=== PATIENT | male | born 1965 | race Caucasian/White ===

== ENCOUNTER 2016-09-20 07:17 | Emergency (ER) | payer BC, OTHER ==
[~2016-09-20] VITALS: Ht 182.9 cm; Wt 134.1 kg
[2016-09-20] MEDS ORDERED: KETOROLAC 15 MG INJ IV STA (07:20)
[2016-09-20] MEDS ORDERED: ONDANSETRON 4 MG INJ IV STA (07:20)
[2016-09-20] MEDS ORDERED: SOD CHLORIDE 0.9% 1,000 ML IV STA (07:20)
[2016-09-20] MEDS ORDERED: FAMOTIDINE 20 MG INJ IV STA (07:20)
[2016-09-20 07:21] VITALS: Ht 182.9 cm; Wt 134.1 kg
[2016-09-20] MEDS ORDERED: RABE20TA5 PO (08:00)
[2016-09-20] MEDS ORDERED: ATEN100T PO (08:00)
[2016-09-20] MEDS ORDERED: FOLI-49 PO (08:01)
[2016-09-20 08:15] LABS: BASOPHIL # 0.1 10^3/ul (0.0-0.1); BASOPHILS % 1.5 % (0.0-2.0); EOSINOPHILS # 0.1 10^3/ul (0.0-0.5); HEMATOCRIT 46.2 % (42.0-52.0); HEMOGLOBIN 15.5 g/dl (14.0-18.0); LYMPHOCYTES # 1.1 10^3/ul (0.8-2.9); LYMPHOCYTES % 19.1 % (15.0-51.0); MEAN CORPUSCULAR HEMOGLOBIN 31.1 pg (29.0-33.0); MEAN CORPUSCULAR HGB CONC 33.6 g/dl (32.0-37.0); MEAN CORPUSCULAR VOLUME 92.8 fl (82.0-101.0); MEAN PLATELET VOLUME 9.4 fl (7.4-10.4); MONOCYTE # 0.5 10^3/ul (0.3-0.9); MONOCYTES % 9.4 % (0.0-11.0); NEUTROPHIL # 3.9 10^3/ul (1.6-7.5); PLATELET COUNT 113 10^3/UL (140-440); RED BLOOD COUNT 4.98 10^6/ul (4.70-6.10); RED CELL DISTRIBUTION WIDTH 16.8 % (11.5-14.5); UNCORRECTED WBC 5.7 10^3/ul (4.8-10.8); WHITE BLOOD COUNT 5.7 10^3/ul (4.8-10.8)
[2016-09-20 08:33] LABS: CONDITION 1; LH ANALYZER COMMENTS 1
[2016-09-20 08:34] LABS: ALBUMIN 3.7 g/dl (3.3-4.9)
[2016-09-20 08:35] LABS: POTASSIUM 4.1 mmol/L (3.5-5.1)
[2016-09-20 08:37] LABS: ALBUMIN/GLOBULIN RATIO 0.88; BILIRUBIN,INDIRECT 0.3 mg/dl (0-1.1); BILIRUBIN,TOTAL 0.3 mg/dl (0.2-1.3); CREATININE 0.6 mg/dl (0.61-1.24); TOTAL PROTEIN 7.9 g/dl (6.1-8.1)
[2016-09-20 08:38] LABS: CALCIUM 9.1 mg/dl (8.4-10.2)
--- NOTE | 2016-09-20 08:53 | RADRPT ---
PROCEDURE: US Abdomen. CLINICAL INDICATION: abdominal pain TECHNIQUE: Multiple real-time images were acquired of the patient's right upper quadrant abdomen a nd retroperitoneum utilizing a high resolution transducer. COMPARISON: None FINDINGS: Limited study due to patient body habitus. The liver demonstrates increased echogenicity. The liver is enlarged in size and no focal solid les ions are seen. The liver measures 19.5 cm in length. The portal vein is patent with normal direction of flow. No intrahepatic biliary dilatation is seen. There is a moderate amount of sludge within the gallbladder. There is no pericholecystic fluid . T here is mild gallbladder wall thickening, measuring 4 mm. The common bile duct measures 6 mm in maxi mal dimension. The pancreas is not seen due to overlying bowel gas. No free fluid is identified. The right kidney is normal in size, and demonstrate normal echogenicity and cortical thickness. The right kidney measures 12.2 cm in long dimension. There is no evidence of hydronephrosis. There are no kidney stones. RPTAT: AA IMPRESSION: Mild hepatomegaly with fatty infiltration. Moderate amount of sludge within the gallbladder. Mildly thickened gallbladder wall measuring 4 mm. .Wilver Weiss MD, Date Time Electronically viewed and signed by .Wilver Weiss MD, on 09/20/2016 08:53 .S/
--- NOTE | 2016-09-20 09:49 | ERD ---
ER Documentation Chief Complaint Date/Time DATE: 09/20/16 TIME: 09:47 Chief Complaint BROUGHT IN VIA EMS DUE TO ABDOMINAL PAIN FROM WORK HPI This is a 51-year-old male who presents to the emergency room for evaluation of abdominal pain. The patient states that his abdominal pain for 1 days duration , states is an achy pain. He localizes to the midportion of his abdomen it does state that he drank 612 ounce beers last night. The patient states that he came to the ER today for evaluation. No diarrhea associated with this and one episode of vomiting. ROS All systems reviewed and are negative except as per history of present illness. Medications Home Meds Reported Medications Folic Acid* (Folic Acid*) 1 Mg Tablet, 1 MG PO DAILY, TAB 09/20/16 Rabeprazole Sodium* (Aciphex*) 20 Mg Tablet.dr, 20 MG PO DAILY, #30 TAB 09/20/16 Atenolol* (Atenolol*) 100 Mg Tablet, 100 MG PO DAILY, #30 TAB 09/20/16 Allergies Allergies: Coded Allergies: No Known Allergy (Unverified , 09/20/16) PMhx/Soc Medical and Surgical Hx: Unable to obtain Hx Alcohol Use: Yes Hx Substance Use: No Hx Tobacco Use: No Smoking Status: Never smoker Physical Exam Vitals Vital Signs Date Time Temp Pulse Resp B/P Pulse Ox O2 Delivery O2 Flow Rate FiO2 09/20/16 07:56 82 18 135/74 98 Room Air 09/20/16 07:21 97.8 74 18 144/111 100 Physical Exam INITIAL VITAL SIGNS: Reviewed by me GENERAL: The patient is well developed and appropriate for usual state of health in no apparent distress HEENT: Pupils equal, round, and reactive to light. EOMI. There is no scleral icterus. NECK: C-spine is soft and supple, there is no meningismus. There is no cervical lymphadenopathy. LUNGS: Clear to auscultation bilaterally. There are no rales, wheezes or rhonchi. HEART: Regular rate and rhythm, no murmurs, clicks, rubs or gallops. ABDOMEN: Epigastric tenderness to palpation, positive Viveros sign there are bowel sounds in all four quadrants. EXTREMITIES: There is no peripheral cyanosis or edema. No focal swelling or erythema. NEUROLOGICAL: The patient moves all four extremities with 5/5 strength. Cranial nerves II - XII are intact. Normal gait. Alert and oriented SKIN: There is no apparent rash or petechiae. HEME/LYMPHATIC: There is no evidence of excessive bruising or lymphedema. PSYCHIATRIC: The patient does not appear anxious or depressed. Result Diagram: 09/20/16 0740 09/20/16 0740 Results 24 hrs Laboratory Tests Test 09/20/16 07:40 Alanine Aminotransferase (ALT/SGPT) 31IU/L Albumin 3.7g/dl Albumin/Globulin Ratio 0.88 Alkaline Phosphatase 135IU/L Anion Gap 18 Aspartate Amino Transf (AST/SGOT) 68IU/L Basophils # 0.110^3/ul Basophils % 1.5% Blood Morphology Comment Blood Urea Nitrogen 4mg/dl Calcium Level 9.1mg/dl Carbon Dioxide Level 33mmol/L Chloride Level 100mmol/L Creatinine 0.60mg/dl Direct Bilirubin 0.00mg/dl Eosinophils # 0.110^3/ul Eosinophils % 2.0% Globulin 4.20g/dl Glucose Level 91mg/dl Hematocrit 46.2% Hemoglobin 15.5g/dl Indirect Bilirubin 0.3mg/dl Lipase 385U/L Lymphocytes # 1.110^3/ul Lymphocytes % 19.1% Mean Corpuscular Hemoglobin 31.1pg Mean Corpuscular Hemoglobin Concent 33.6g/dl Mean Corpuscular Volume 92.8fl Mean Platelet Volume 9.4fl Monocytes # 0.510^3/ul Monocytes % 9.4% Neutrophils # 3.910^3/ul Neutrophils % 68.0% Nucleated Red Blood Cells # 0.010^3/ul Nucleated Red Blood Cells % 0.0/100WBC Platelet Count 23628^3/UL Potassium Level 4.1mmol/L Red Blood Count 4.9810^6/ul Red Cell Distribution Width 16.8% Sodium Level 147mmol/L Total Bilirubin 0.3mg/dl Total Protein 7.9g/dl White Blood Count 5.710^3/ul Current Medications Medications (Trade) Dose Ordered Sig/Craig Route PRN Reason Start Time Stop Time Status Last Admin Dose Admin Sodium Chloride (NS) 1,000 ml @ 1,000 mls/hr Q1H STAT IV 09/20/16 07:20 09/20/16 08:19 DC 09/20/16 07:33 Ondansetron HCl (Zofran Inj) 4 mg ONCE STAT IV 09/20/16 07:20 09/20/16 07:21 DC 09/20/16 07:33 Famotidine (Pepcid Iv) 20 mg ONCE STAT IV 09/20/16 07:20 09/20/16 07:21 DC 09/20/16 07:33 Ketorolac Tromethamine 15 mg 15 mg ONCE STAT IV 09/20/16 07:20 09/20/16 07:21 DC 09/20/16 07:33 Ceftriaxone Sodium (Rocephin) 50 ml @ 100 mls/hr ONCE ONCE IVPB 09/20/16 10:00 09/20/16 10:29 Procedures/MDM Ultrasound gallbladder: Mild hepatomegaly with fatty infiltration. Moderate amount of sludge within the gallbladder. Mildly thickened gallbladder wall measuring 4 mm. This 51-year-old male presents to the ER for evaluation of abdominal pain. This patient was brought to the emergency room by EMS from work. He did have mild epigastric pain on my examination and right upper quadrant pain. I did obtain ultrasound which shows gallbladder sludge and mild thickening of the gallbladder wall. This patient has no leukocytosis, mild spike in his lipase. He was given 2 L of fluid, Toradol, and a pulmonary evaluation he does he is feeling better. I do feel her symptoms are secondary to alcoholic gastritis. The patient also received Zofran and Pepcid. The patient will be discharged home with a prescription for Zofran, Pepcid, and [place] for breakthrough pain. Departure Diagnosis: Primary Impression: Alcoholic gastritis Additional Impression: Abdominal pain Condition: TIA Andujar DO Sep 20, 2016 09:49
[2016-09-20] MEDS ORDERED: HYDR-906 PO (09:50)
[2016-09-20] MEDS ORDERED: PANT40TA3 PO (09:50)
[2016-09-20] MEDS ORDERED: ONDA-43 PO (09:50)
[2016-09-20] MEDS ORDERED: CEFTRIAXONE 1 GM/50 ML (PMX) 50 ML IVPB ONE (10:00)
[2016-09-20 10:08] VITALS: BP 152/86; PULSE 78; RESP 18; TEMP 98
[2016-09-20 10:23] LABS: ADD UMIC NO; URINE BILIRUBIN (Dip) NEGATIVE (NEGATIVE); URINE BLOOD (Dip) NEGATIVE (NEGATIVE); URINE COLOR LT. YELLOW (YELLOW); URINE GLUCOSE (Dip) NEGATIVE (NEGATIVE); URINE KETONES (Dip) NEGATIVE (NEGATIVE); URINE LEUKOCYTE ESTERASE (Dip) NEGATIVE (NEGATIVE); URINE NITRITE (Dip) NEGATIVE (NEGATIVE); URINE TOTAL PROTEIN (Dip) NEGATIVE (NEGATIVE); URINE UROBILINOGEN (Dip) 4.0 E.U./dL (0.1-1.0)
== END 2016-09-20 10:23 | disposition home or self-care (01) ==
LOC: E/R 07:17
DX: K29.20 Alcoholic gastritis without bleeding (principal); R10.13 Epigastric pain; R11.10 Vomiting, unspecified
CPT/HCPCS: 76705; 80053; 81003; 83690; 85025; J0696; J1885; J2405; J7030; 36415; 96374; 96375